=== PATIENT | male | born 1950 | race Caucasian/White ===

== ENCOUNTER → 2017-05-12 14:57 | Outpatient (CLI) | payer MEDICARE, OTHER, SELFPAY ==
--- NOTE | 2017-05-12 15:07 | MRI_ITS ---
STUDY: MRI THORACIC SPINE WITHOUT CONTRAST REASON FOR EXAM: Male, 66 years old. Numbness and tingling left arm and side TECHNIQUE: Standardized fat and water weighted pulse sequences were obtained in the sagittal and axial planes. COMPARISON: None. FINDINGS: Normal kyphosis of the thoracic spine. There is moderate dextro scoliosis. No evidence for acute fracture or subluxation.. There is desiccation of the discs secondary to degeneration all levels. There is mild multilevel disc space narrowing and osteophytic spurring. There are multilevel tiny disc protrusions without significant spinal stenosis or cord compression. Normal visualized thoracic cord. Normal conus medullaris that terminates at T12-L1 The soft tissue structures are unremarkable. MRI/Spine Thoracic (Routine) IMPRESSION: Scoliosis and degenerative changes. Multilevel disc degeneration and tiny disc protrusions without significant spinal stenosis or cord compression. Electronically Signed: Soren Bowers MD at 16:31 EST , Service support ,
== END ==
PROVIDERS: Family Provider Family Medicine; PCP Family Medicine; Visit Provider Nurse Practitioner Acute Care
DX: R20.2 Paresthesia of skin (principal); R20.0 Anesthesia of skin
CPT/HCPCS: 72146